=== PATIENT | female | born 1975 | race Caucasian/White ===

== ENCOUNTER → 2017-02-21 | Outpatient (CLI) | payer BC ==
[~2017-02-21] MED LIST: ACHD5005 PO; AMIT50TA3 PO; AMOX-358 PO; BUTA1CAP45 PO; CATHETER FLUSH 10 ML SYR IV PRN; CPR500T PO; CRAN500T PO; ESTR0.5T3 PO; FLUO20CA42 PO; GABA-488 PO; GBPN300C PO; HYDR-229 PO; HYDR-34 PO; IBP800T PO; IOHEXOL 350 MG/ML 100 ML (OMNIPAQUE 350) VIAL IV ONE; LISI20TA2 PO; LORA10TA72 PO; LORA1TAB59 PO; MILK200C4 PO; MTF500T PO; NITR0.4T39 SL; NS 100 ML (IVPB) BAG IV ONE; PANT40TA2 PO; PNT40TEC PO; PRD20T PO; PROP40TA5 PO; RED600TA PO; SIME125C75 PO; TRIA10.8 NSEACH; [UNRECOGNIZED DRUG - OTHER]
--- NOTE | 2017-02-21 15:51 | Diagnostic Imaging Report ---
PROCEDURE: CT abdomen and pelvis with contrast. TECHNIQUE: Multiple contiguous axial images were obtained through the abdomen and pelvis after administration of intravenous contrast. INDICATION: Right upper quadrant and right lower quadrant abdominal pain. COMPARISON: 02/15/2016 FINDINGS: Included views of the lung bases are clear. CT abdomen: Small bowel loops are nondistended. Normal appendix is identified. The kidneys, spleen, adrenal glands, and pancreas have a normal CT appearance. There is a small hypoenhancing rounded focus within segment IVb of the liver adjacent to the gallbladder fossa. Appearance is consistent with a benign cyst. Similar, although subcentimeter focus is also noted within the inferior margins of segment 2 of the liver. Although this may represent a small cyst as well, it is too small to adequately characterize based on this exam. It is, however, stable compared to 08/22/2011. There is no loculated fluid collection, free fluid or free air within the abdomen. No abnormal mesenteric or retroperitoneal adenopathy is seen. Bony structures show no acute abnormalities. CT pelvis: Urinary bladder is grossly unremarkable. There is no loculated fluid collection, free fluid or free air. No abnormal lymph nodes are seen. Bony structures show no acute abnormalities. IMPRESSION: 1. No acute abnormalities within the abdomen or pelvis. Dictated by: Dictated on workstation # [id number]
== END ==
LOC: RAD 14:33
PROVIDERS: ATTEND Nurse Practitioner Family
DX: R10.11 Right upper quadrant pain (principal); R10.31 Right lower quadrant pain
CPT/HCPCS: 74177